=== PATIENT | male | born 1985 ===

== ENCOUNTER 2016-07-24 19:32 | Emergency (ER) | payer OTHER ==
[2016-07-24 19:43] VITALS: BP 121/72; PULSE 70; RESP 16; TEMP 98; O2SAT 97
--- NOTE | 2016-07-24 21:01 | C.PDOC ---
History Of Present Illness 31 year old male presents to the ED with complaints of right forearm pain after boxes fell on his arm at work a few days ago. Patient also notes bilateral shoulder pain but denies trauma to his shoulders. He denies any weakness, numbness, or other complaints at this time. Time Seen by Provider: 07/24/16 20:06 Chief Complaint (Nursing): Upper Extremity Problem/Injury History Per: Patient History/Exam Limitations: no limitations Onset/Duration Of Symptoms: Days Current Symptoms Are (Timing): Still Present Quality: "Pain" Recent travel outside of the [place]: No Past Medical History Reviewed: Historical Data, Nursing Documentation, Vital Signs Vital Signs: Last Vital Signs Temp 98 F 07/24/16 19:38 Pulse 70 07/24/16 19:38 Resp 16 07/24/16 19:38 BP 121/72 07/24/16 19:38 Pulse Ox 97 07/24/16 21:14 - Medical History PMH: Asthma (childhood), Kidney Stones - [facility] Procedures APPLICATION OF SPLINT (09/15/14) DPT ADMINISTRATION (08/21/14) Family History: States: Unknown Family Hx - Social History Hx Tobacco Use: No Hx Alcohol Use: No Hx Substance Use: No - Immunization History Hx Tetanus Toxoid Vaccination: No Hx Influenza Vaccination: No Hx Pneumococcal Vaccination: No Review Of Systems Musculoskeletal: Positive for: Shoulder Pain (bilateral shoulder pain ), Arm Pain (right forearm pain ) Skin: Negative for: Bruising Neurological: Negative for: Weakness, Numbness Physical Exam - Physical Exam Appears: Non-toxic, No Acute Distress Skin: Warm, Dry, No Ecchymosis Head: Atraumatic Eye(s): bilateral: Normal Inspection, PERRL Neck: Normal, Supple Chest: Symmetrical, No Deformity Extremity: Normal ROM (full range of motion in both UE), Tenderness (tenderness to dorsal aspect of the right forearm), Capillary Refill (good capillary refill ), No Deformity, Swelling (swelling to dorsal aspect to the right forearm ), Other (normal sensations ) Pulses: Left Radial: Normal, Right Radial: Normal Neurological/Psych: Oriented x3, Normal Motor, Normal Sensation Gait: Steady ED Course And Treatment O2 Sat by Pulse Oximetry: 97 (room air ) Pulse Ox Interpretation: Normal - Other Rad X-RAY RIGHT FOREARM X-Ray: Interpreted by Me, Viewed By Me Interpretation: No fracture in right forearm. Progress Note: Patient is refusing pain medications and instructed to follow up with PMD. Disposition Counseled Patient/Family Regarding: Diagnosis, Need For Followup, Rx Given - Disposition Referrals: [facility] [Outside] Disposition: HOME/ ROUTINE Disposition Time: 20:59 Condition: STABLE Additional Instructions: Apply Ice to area Take meds as prescribed Return to ER if worse Prescriptions: Ibuprofen [Motrin] 600 mg PO Q6H #20 tab Instructions: Contusion in Adults (ED) Forms: Work Excuse - Clinical Impression Clinical Impression: Forearm contusion, Shoulder pain, bilateral - Scribe Statement The provider has reviewed the documentation as recorded by the Scribe Symone Alvarado All medical record entries made by the Richibe were at my direction and personally dictated by me. I have reviewed the chart and agree that the record accurately reflects my personal performance of the history, physical exam, medical decision making, and the department course for this patient. I have also personally directed, reviewed, and agree with the discharge instructions and disposition.
--- NOTE | 2016-07-25 11:43 | RAD ---
PROCEDURE: Radiographs of the right forearm. HISTORY: distal forearm injury COMPARISON: None available. TECHNIQUE: Frontal and lateral views obtained. FINDINGS: BONES: No acute displaced fracture. JOINT SPACES: No dislocation. OTHER FINDINGS: Soft tissues appear unremarkable. No evidence of radiopaque foreign body. IMPRESSION: No acute displaced fracture, dislocation, or significant joint effusion identified. If symptoms persist, or if there is continued clinical concern, x-ray follow-up in 7-10 days should be considered.
== END 2016-07-24 21:04 | disposition home or self-care (01) ==
LOC: C.ER 19:32
DX: S50.11XA Contusion of right forearm, initial encounter (principal); W20.8XXA Other cause of strike by thrown, projected or falling object, initial encounter; Y93.89 Activity, other specified; Y92.89 Other specified places as the place of occurrence of the external cause; Y99.0 Civilian activity done for income or pay; M25.512 Pain in left shoulder; M25.511 Pain in right shoulder

== ENCOUNTER 2017-01-31 22:35 | Emergency (ER) | payer SELFPAY ==
--- NOTE | 2017-01-31 23:07 | C.PDOC ---
History Of Present Illness 31 year old male presents to the ER with a complaint of abdominal pain that began earlier tonight around 21:00 that has been worsening, associated with one episode of vomiting. Denies fever, chills, diarrhea, SOB, or chest pain. Patient states the pain is over all his abdomen and right flank area. Patient has a Hx of kidney stones, he was seen in June 2013 where he had a CT abd /pel that showed mild to moderate right renal hydroureteronephrosis secondary to a 4 mm calculus in the distal right ureter, 3 mm pulmonary nodule in the right middle lobe. Chief Complaint (Nursing): Male Genitourinary History Per: Patient History/Exam Limitations: no limitations Onset/Duration Of Symptoms: Hrs Current Symptoms Are (Timing): Still Present Severity: Mild Pain Scale Rating Of: 4 Quality Of Discomfort: Unable To Describe Associated Symptoms: Vomiting. denies: Fever, Chills, Diarrhea Alleviating Factors: None Recent travel outside of the [place]: No Additional History Per: Patient Past Medical History Reviewed: Historical Data, Nursing Documentation, Vital Signs Vital Signs: Last Vital Signs Temp 98.5 F 02/01/17 01:34 Pulse 90 02/01/17 01:34 Resp 16 02/01/17 01:34 BP 127/78 02/01/17 01:34 Pulse Ox 97 02/01/17 04:19 - Medical History PMH: Asthma (childhood), Kidney Stones, Chronic Kidney Disease - [facility] Procedures APPLICATION OF SPLINT (09/15/14) DPT ADMINISTRATION (08/21/14) Family History: States: Unknown Family Hx - Social History Hx Tobacco Use: No Hx Alcohol Use: Yes Hx Substance Use: Yes (MARIJUANA) - Immunization History Hx Tetanus Toxoid Vaccination: No Hx Influenza Vaccination: No Hx Pneumococcal Vaccination: No Review Of Systems Constitutional: Negative for: Fever, Chills Eyes: Negative for: Pain ENT: Negative for: Ear Pain Cardiovascular: Negative for: Chest Pain, Palpitations Respiratory: Negative for: Cough, Shortness of Breath, SOB with Excertion, Pleuritic Pain Gastrointestinal: Positive for: Nausea, Vomiting, Abdominal Pain. Negative for : Diarrhea, Constipation Genitourinary: Negative for: Dysuria, Hematuria Musculoskeletal: Negative for: Neck Pain, Shoulder Pain Skin: Negative for: Rash Neurological: Negative for: Weakness Psych: Negative for: Anxiety Physical Exam - Physical Exam Appears: Non-toxic, No Acute Distress Skin: Normal Color, Warm, Dry Head: Atraumatic, Normacephalic Eye(s): bilateral: Normal Inspection Oral Mucosa: Moist Chest: Symmetrical, No Tenderness Cardiovascular: Rhythm Regular Respiratory: Normal Breath Sounds, No Rales, No Rhonchi Gastrointestinal/Abdominal: Bowel Sounds, Soft, Tenderness (Diffuse), No Organomegaly, No Mass, No Distention, No Guarding, No Rebound, No Hernia, No Ascites Back: CVA Tenderness (Right) Neurological/Psych: Oriented x3, Normal Speech ED Course And Treatment - Laboratory Results Result Diagrams: 01/31/17 23:43 01/31/17 23:43 O2 Sat by Pulse Oximetry: 97 (Room air) Pulse Ox Interpretation: Normal - CT Scan/US CT abd/pel Other Rad Studies (CT/US): Read By Radiologist, Radiology Report Reviewed CT/US Interpretation: EXAM: CT Abdomen and Pelvis With Intravenous Contrast. CLINICAL HISTORY: 31 years old, male; Pain; Abdominal pain; Patient HX: 07-11-13 ; Additional info: Abd pain. TECHNIQUE: Axial computed tomography images of the abdomen and pelvis with intravenous contrast. All CT. scans at this facility use one or more dose reduction techniques, viz.: automated exposure control;. ma/kV adjustment per patient size (including targeted exams where dose is matched to indication; i.e. head); or iterative reconstruction technique. Coronal and sagittal reformatted images were created and reviewed. CONTRAST: 100 mL of [id number] administered intravenously. COMPARISON: CT - ABD PELVIS W/O PO OR IV CONT 2013-07-11 23:26. FINDINGS: Lower thorax: Minimal atelectasis. 0.4 cm RIGHT middle lobe nodule, stable. ABDOMEN: Liver: Unremarkable. No mass. Gallbladder and bile ducts: No calcified stones. No ductal dilation. Pancreas: No ductal dilation. No mass. Spleen: No splenomegaly. Adrenals: No mass. Kidneys and ureters: Small calculus within LEFT kidney. No hydronephrosis. Stomach and bowel: Probable underdistention of LEFT colon. No definite mural thickening. No. obstruction. Appendix: Normal caliber. No inflammation. PELVIS: Bladder: Unremarkable. Reproductive: Unremarkable as visualized. ABDOMEN and PELVIS: Intraperitoneal space: No significant fluid collection. No free air. Bones/joints: No acute fracture. Soft tissues: Unremarkable. Vasculature: Unremarkable. No aneurysm. Lymph nodes: No pathologically enlarged lymph nodes. IMPRESSION: 1. No definite acute intraabdominal abnormality. 2. Non-acute findings are described above. Medical Decision Making Medical Decision Making: Plan: * CT abd/pel * CMP * Lipase * CBC * GC/Chlamydia * UA * Toradol Patient had minimal relief from toradol, will administered 1 liter bolus- pt with ketones 1+ in urien/ and morphine 4 mg . Patient reports improvement of pain after morphine. CT a/p negaitve. Labs uremarkable. Pt feels better. Disposition Counseled Patient/Family Regarding: Diagnosis - Disposition Referrals: [facility] at [facility] [place] [Outside] [facility] at [facility] [Outside] [facility] [place] [Outside] Disposition: HOME/ ROUTINE Disposition Time: 03:00 Condition: GOOD Additional Instructions: return to ED if symptoms worsen., Ct neg. labs unremarkable Instructions: Acute Abdominal Pain (ED) Forms: General Discharge Instructions, [facility] (Lao), Work Excuse - Clinical Impression Clinical Impression: Abdominal pain - Scribe Statement The provider has reviewed the documentation as recorded by the Scribsudhakar Mata All medical record entries made by the Scribe were at my direction and personally dictated by me. I have reviewed the chart and agree that the record accurately reflects my personal performance of the history, physical exam, medical decision making, and the department course for this patient. I have also personally directed, reviewed, and agree with the discharge instructions and disposition.
[2017-01-31] MEDS ORDERED: Sodium Chloride 0.9% 1,000 ML IV ONE (23:40)
[2017-01-31] MEDS ORDERED: Morphine 4 MG/ML VIAL ONE (23:45)
[2017-01-31] MEDS ORDERED: Sodium Chloride 0.9% 1,000 ML ONE (23:45)
[2017-01-31 23:46] LABS: BASO % 0.4 % (0.0-2.0); EOS % 0.4 % (0.0-4.0); HEMATOCRIT 44.4 % (35.0-51.0); LYMPH # 2.7 K/uL (1.0-4.3); LYMPH % 27.6 % (20.0-40.0); MEAN CELL VOLUME 82.6 fL (80.0-94.0); MEAN CORPUSCULAR HEMOGLOBIN 27.8 pg (27.0-31.0); MEAN CORPUSCULAR HGB CONC 33.6 g/dL (33.0-37.0); MEAN PLATELET VOLUME 9.4 fL (7.2-11.7); MONO # 0.8 K/uL (0.0-0.8); MONO % 8.1 % (0.0-10.0); RED CELL DISTRIBUTION WIDTH 14.3 % (11.5-14.5); WHITE BLOOD COUNT 9.8 K/uL (4.8-10.8)
[2017-01-31 23:58] LABS: ALKALINE PHOSPHATASE 50 U/L (38-126); ALT/SGPT 34 U/L (21-72); AST/SGOT 25 U/L (17-59); BILIRUBIN,TOTAL 0.6 mg/dL (0.2-1.3); BLOOD UREA NITROGEN 16 mg/dL (9-20); CALCIUM 9.4 mg/dl (8.6-10.4); CARBON DIOXIDE 25 mmol/L (22-30); CHLORIDE 100 mmol/L (98-107); GFR AFRICAN-AMERICAN > 60; GLUCOSE,RANDOM 85 mg/dL (75-110); POTASSIUM 4.2 mmol/L (3.6-5.2); SODIUM 138 mmol/L (132-148)
[2017-02-01] MEDS ORDERED: Iodixanol 320 MG/ML 100 ML BOTTLE IV ONE (00:08)
--- NOTE | 2017-02-01 01:23 | CT ---
EXAM: CT Abdomen and Pelvis With Intravenous Contrast CLINICAL HISTORY: 31 years old, male; Pain; Abdominal pain; Patient HX: 07-11-13; Additional info: Abd pain TECHNIQUE: Axial computed tomography images of the abdomen and pelvis with intravenous contrast. All CT scans at this facility use one or more dose reduction techniques, viz.: automated exposure control; ma/kV adjustment per patient size (including targeted exams where dose is matched to indication; i.e. head); or iterative reconstruction technique. Coronal and sagittal reformatted images were created and reviewed. CONTRAST: 100 mL of [id number] administered intravenously. COMPARISON: CT - ABD PELVIS W/O PO OR IV CONT 2013-07-11 23:26 FINDINGS: Lower thorax: Minimal atelectasis. 0.4 cm RIGHT middle lobe nodule, stable. ABDOMEN: Liver: Unremarkable. No mass. Gallbladder and bile ducts: No calcified stones. No ductal dilation. Pancreas: No ductal dilation. No mass. Spleen: No splenomegaly. Adrenals: No mass. Kidneys and ureters: Small calculus within LEFT kidney. No hydronephrosis. Stomach and bowel: Probable underdistention of LEFT colon. No definite mural thickening. No obstruction. Appendix: Normal caliber. No inflammation. PELVIS: Bladder: Unremarkable. Reproductive: Unremarkable as visualized. ABDOMEN and PELVIS: Intraperitoneal space: No significant fluid collection. No free air. Bones/joints: No acute fracture. Soft tissues: Unremarkable. Vasculature: Unremarkable. No aneurysm. Lymph nodes: No pathologically enlarged lymph nodes. IMPRESSION: 1. No definite acute intraabdominal abnormality. 2.Non-acute findings are described above.
[2017-02-01 01:31] LABS: RBC URINE 1 /hpf (0-3); URINE BILIRUBIN NEGATIVE (NEGATIVE); URINE BLOOD NEGATIVE (NEGATIVE); URINE COLOR Yellow (YELLOW); URINE GLUCOSE (UA) NORMAL (Normal); URINE KETONE 1+ mg/dL (NEGATIVE); URINE LEUKOCYTE ESTERASE NEG Leu/uL (Negative); URINE PROTEIN NEGATIVE (NEGATIVE); URINE UROBILINOGEN NORMAL mg/dL (0.2-1.0); WBC URINE < 1 /hpf (0-5)
[2017-02-01 01:35] VITALS: BP 127/78; PULSE 90; RESP 16; TEMP 98.5
[2017-02-01 04:17] VITALS: O2SAT 97
== END 2017-02-01 02:33 | disposition home or self-care (01) ==
LOC: C.ER 22:35
DX: R10.9 Unspecified abdominal pain (principal)
CPT/HCPCS: 74177; 80053; 81001; 83690; 85025; 87491; 87591; 96361; 96374; 96375; 99285; J1885; J2270; J7040; Q9967

== ENCOUNTER 2017-02-06 10:17 | Emergency (ER) | payer SELFPAY ==
[2017-02-06 10:23] VITALS: BP 131/83; PULSE 68; RESP 18; TEMP 97.5; O2SAT 97
--- NOTE | 2017-02-06 10:34 | C.PDOC ---
History Of Present Illness 31 y/o male presents to ED with right hand pain after accidentally slamming hand in door just prior to arrival. Pt is right hand dominant. no analgesics taken at home. denies numbness and tingling. Time Seen by Provider: 02/06/17 10:29 Chief Complaint (Nursing): Upper Extremity Problem/Injury History Per: Patient History/Exam Limitations: no limitations Onset/Duration Of Symptoms: Hrs (1) Current Symptoms Are (Timing): Still Present Quality: Tightness Severity: Moderate Exacerbating Factor(s): Movement Past Medical History Reviewed: Historical Data, Nursing Documentation, Vital Signs Vital Signs: Last Vital Signs Temp 97.5 F L 02/06/17 10:22 Pulse 68 02/06/17 10:22 Resp 18 02/06/17 10:22 BP 131/83 02/06/17 10:22 Pulse Ox 97 02/06/17 15:57 - Medical History PMH: Asthma (childhood), Kidney Stones, Chronic Kidney Disease - [facility] Procedures APPLICATION OF SPLINT (09/15/14) DPT ADMINISTRATION (08/21/14) Family History: States: Unknown Family Hx - Social History Hx Tobacco Use: No Hx Alcohol Use: Yes Hx Substance Use: Yes (MARIJUANA) - Immunization History Hx Tetanus Toxoid Vaccination: No Hx Influenza Vaccination: No Hx Pneumococcal Vaccination: No Review Of Systems Musculoskeletal: Positive for: Hand Pain (right) Skin: Positive for: Bruising (dorsum hand right) Neurological: Negative for: Weakness, Numbness Physical Exam - Physical Exam Appears: Non-toxic, No Acute Distress Skin: Normal Color, Warm, Dry, Ecchymosis (mild to dorsum right hand) Extremity: Normal ROM (at right wrist, unable to fully make fist right hand), Tenderness (to metacarpals, proximal 4th metacarpal swelling/deformity noted. ) , Capillary Refill (less than 2 seconds), Swelling Extremity: Right: Bony Point Tenderness (metacarpals) Pulses: Right Radial: Normal Neurological/Psych: Oriented x3, Normal Speech, Normal Cognition ED Course And Treatment O2 Sat by Pulse Oximetry: 97 - Other Rad Right Hand XR X-Ray: Viewed By Me, Read By Radiologist Interpretation: FINDINGS: BONES: There is no acute displaced fracture or bone destruction. Bone alignment is normal. The 4th and 5th metacarpals are short with old deformities. JOINTS: Normal. No osteoarthritic changes. SOFT TISSUES : Normal. OTHER FINDINGS: None. IMPRESSION: No acute displaced fracture or dislocation. Medical Decision Making Medical Decision Making: right hand pain s/p accidentally slammed in door Plan: cold pack (pt declines), tylenol, xray, re-eval. No acute fx seen on xray, old deformities noted. pt declines cold compress, splint and froylan wrap, pt advised to f/u with orthopedics. Disposition Counseled Patient/Family Regarding: Studies Performed, Diagnosis, Need For Followup - Disposition Referrals: Allen Odonnell MD [Staff Provider] - Disposition: HOME/ ROUTINE Disposition Time: 11:45 Condition: STABLE Additional Instructions: Cold compresses to right hand several times a day. Ibuprofen for pain, follow up with orthopedics. Forms: [facility] (Turkmen), General Discharge Instructions - Clinical Impression Clinical Impression: Injury, hand
--- NOTE | 2017-02-06 11:09 | RAD ---
PROCEDURE: Right Hand Radiographs. HISTORY: slammed in door, 4th metacarpal deformity noted COMPARISON: None. FINDINGS: BONES: There is no acute displaced fracture or bone destruction. Bone alignment is normal. The 4th and 5th metacarpals are short with old deformities. JOINTS: Normal. No osteoarthritic changes. SOFT TISSUES: Normal. OTHER FINDINGS: None. IMPRESSION: No acute displaced fracture or dislocation.
== END 2017-02-06 11:49 | disposition home or self-care (01) ==
LOC: C.ER 10:17
DX: S69.91XA Unspecified injury of right wrist, hand and finger(s), initial encounter (principal); W22.8XXA Striking against or struck by other objects, initial encounter; Y92.89 Other specified places as the place of occurrence of the external cause

== ENCOUNTER 2017-05-16 16:10 | Emergency (ER) | payer OTHER ==
[2017-05-16 16:18] VITALS: BP 133/78; PULSE 91; RESP 18; TEMP 97.6; O2SAT 96
--- NOTE | 2017-05-16 17:04 | C.PDOC ---
History Of Present Illness 32yo male, right hand dominant, history of right hand fracture, presents to ED for evaluation of right hand pain after a box fell on his hand while at work yesterday. He reports normal sensations and denies any weakness or numbness. Pt requests work note. Time Seen by Provider: 05/16/17 16:56 Chief Complaint (Nursing): Finger,Hand,&Wrist History Per: Patient History/Exam Limitations: no limitations Onset/Duration Of Symptoms: Days Current Symptoms Are (Timing): Still Present Quality: "Pain" Past Medical History Reviewed: Historical Data, Nursing Documentation, Vital Signs Vital Signs: Last Vital Signs Temp 97.6 F 05/16/17 16:16 Pulse 91 H 05/16/17 16:16 Resp 18 05/16/17 16:16 BP 133/78 05/16/17 16:16 Pulse Ox 96 05/16/17 17:34 - Medical History PMH: Asthma (childhood), Kidney Stones, Chronic Kidney Disease Surgical History: No Surg Hx - [facility] Procedures APPLICATION OF SPLINT (09/15/14) DPT ADMINISTRATION (08/21/14) Family History: States: Unknown Family Hx - Social History Hx Tobacco Use: No Hx Alcohol Use: Yes Hx Substance Use: Yes (MARIJUANA) - Immunization History Hx Tetanus Toxoid Vaccination: No Hx Influenza Vaccination: No Hx Pneumococcal Vaccination: No Review Of Systems Except As Marked, All Systems Reviewed And Found Negative. Musculoskeletal: Positive for: Hand Pain (right hand pain) Neurological: Negative for: Weakness, Numbness Physical Exam - Physical Exam Appears: Non-toxic, No Acute Distress Skin: Warm, Dry Head: Atraumatic, Normacephalic Eye(s): bilateral: PERRL, EOMI Nose: Normal Oral Mucosa: Moist Neck: Normal ROM, Supple Chest: Symmetrical Respiratory: No Accessory Muscle Use Extremity: Normal ROM, Tenderness (no tenderness noted to right hand), Capillary Refill (< 2 sec), Deformity (chronic deformity to right 5th metacarpal ), Swelling (no swelling noted to right hand) Pulses: Left Radial: Normal, Right Radial: Normal Neurological/Psych: Oriented x3, Normal Motor, Normal Sensation ED Course And Treatment O2 Sat by Pulse Oximetry: 96 (RA) Pulse Ox Interpretation: Normal Progress Note: Patient was offered XR of right hand which he declined. He also declined medication for pain. pt requests work note. Patient given instructions for follow up with an orthopedis in 1-2 days Disposition - Disposition Referrals: [facility] at [facility] [Outside] Adam Garrido III, MD [Staff Provider] - Disposition: HOME/ ROUTINE Disposition Time: 17:02 Condition: STABLE Additional Instructions: Rest, ice and elevate the area. Follow up with the clinic in 2-5 days for further evaluation. Take medications as prescribed. Return to the emergency department at any time if symptoms persist or worsen. [facility] for [facility] assistance [phone]. Instructions: Contusion (DC) Forms: [employer] Connect (Bulgarian), Work Excuse - Clinical Impression Clinical Impression: Hand contusion - PA / CAR CARDER / Resident Statement MD/DO has reviewed & agrees with the documentation as recorded. - Scribe Statement The provider has reviewed the documentation as recorded by the Scribe (Alina Salas) Provider Attestation: All medical record entries made by the Scribe were at my direction and personally dictated by me. I have reviewed the chart and agree that the record accurately reflects my personal performance of the history, physical exam, medical decision making, and the department course for this patient. I have also personally directed, reviewed, and agree with the discharge instructions and disposition.
== END 2017-05-16 17:10 | disposition home or self-care (01) ==
LOC: C.ER 16:10
DX: S60.221A Contusion of right hand, initial encounter (principal); W22.8XXA Striking against or struck by other objects, initial encounter; Y92.89 Other specified places as the place of occurrence of the external cause; Y99.0 Civilian activity done for income or pay

== ENCOUNTER 2017-06-21 05:12 | Emergency (ER) | payer OTHER ==
[2017-06-21 05:21] VITALS: BP 140/84; PULSE 96; RESP 18; TEMP 97.8; O2SAT 96
[2017-06-21] MEDS ORDERED: Sodium Chloride 0.9% 1,000 ML IV ONE (05:36)
--- NOTE | 2017-06-21 05:49 | C.PDOC ---
History Of Present Illness <Renan Raymond - Last Filed: 06/21/17 07:09> <Natalie Dominguez - Last Filed: 06/21/17 08:36> 32 year old male presents to the emergency department with complaints of right sided abdominal pain, qualified as severe. Patient states that his pain is radiating to his groin area, and he reports a history of having this pain in the past. (SegundoRenan Tyson) History/Exam Limitations: no limitations Onset/Duration Of Symptoms: Hrs Current Symptoms Are (Timing): Still Present Quality Of Discomfort: "Pain" <Renan Raymond - Last Filed: 06/21/17 07:09> <Natalie Dominguez - Last Filed: 06/21/17 08:36> Time Seen by Provider: 06/21/17 05:34 Chief Complaint (Nursing): Male Genitourinary Past Medical History Reviewed: Historical Data, Nursing Documentation, Vital Signs - Medical History PMH: Asthma (childhood), Kidney Stones, Chronic Kidney Disease Surgical History: No Surg Hx Family History: States: Unknown Family Hx - Social History Hx Tobacco Use: No Hx Alcohol Use: Yes Hx Substance Use: Yes (MARIJUANA) - Immunization History Hx Tetanus Toxoid Vaccination: No Hx Influenza Vaccination: No Hx Pneumococcal Vaccination: No <Renan Raymond - Last Filed: 06/21/17 07:09> Vital Signs: Last Vital Signs Temp 97.8 F 06/21/17 05:18 Pulse 96 H 06/21/17 05:18 Resp 18 06/21/17 05:18 BP 140/84 06/21/17 05:18 Pulse Ox 96 06/21/17 07:10 - [facility] Procedures APPLICATION OF SPLINT (09/15/14) DPT ADMINISTRATION (08/21/14) Review Of Systems Except As Marked, All Systems Reviewed And Found Negative. Gastrointestinal: Positive for: Abdominal Pain Genitourinary: Positive for: Other (groin pain) <Renan Raymond - Last Filed: 06/21/17 07:09> Physical Exam - Physical Exam Appears: Non-toxic, In Acute Distress Cardiovascular: Rhythm Regular Respiratory: Normal Breath Sounds Gastrointestinal/Abdominal: Soft, Tenderness (RUQ, right lumbar), No Guarding, No Rebound <Renan Raymond - Last Filed: 06/21/17 07:09> ED Course And Treatment - Laboratory Results Result Diagrams: 06/21/17 05:57 06/21/17 05:57 O2 Sat by Pulse Oximetry: 96 (RA) Pulse Ox Interpretation: Normal <Cheko Raymondeliana Tyson - Last Filed: 06/21/17 07:09> - Laboratory Results Result Diagrams: 06/21/17 05:57 06/21/17 05:57 <Natalie Dominguez - Last Filed: 06/21/17 08:36> Progress <SegundoRenan Tyson - Last Filed: 06/21/17 07:09> <AlbertoNatalie - Last Filed: 06/21/17 08:36> - Re-Evaluation Re-evaluation Note: 06/21/17 08:36 INFORMED BY RN PT ELOPED PRIOR TO GIVING UA, PRIOR TO MY REEVAL. WITNESSED BY RN TO WALK OUT WO DIFFICULTY (Natalie Dominguez) Medical Decision Making <Renan Raymond - Last Filed: 06/21/17 07:09> <AlbertoNatalie - Last Filed: 06/21/17 08:36> Medical Decision Making: Plan: CMP Lipase CBC Flomax 0.4mg PO NaCl IV Fluids Toradol 30mg IVP Urinalysis (Renan Raymond) Disposition - Disposition Disposition Time: 07:00 <Renan Raymond - Last Filed: 06/21/17 07:09> - Disposition Disposition Time: 08:30 <AlbertoNatalie - Last Filed: 06/21/17 08:36> - Disposition Referrals: Non [facility] Provider, [Primary Care Provider] - Disposition: ELOPEMENT - ER ONLY Condition: GOOD Forms: [facility] (Faroese) - Clinical Impression Clinical Impression: Flank pain - Scribe Statement The provider has reviewed the documentation as recorded by the Scribe (Pepe Nellie) <Renan Raymond - Last Filed: 06/21/17 07:09> <Natalie Dominguez - Last Filed: 06/21/17 08:36> - Scribe Statement Provider Attestation: All medical record entries made by the Scribe were at my direction and personally dictated by me. I have reviewed the chart and agree that the record accurately reflects my personal performance of the history, physical exam, medical decision making, and the department course for this patient. I have also personally directed, reviewed, and agree with the discharge instructions and disposition. (Renan Raymond)
[2017-06-21 06:00] LABS: BASO # 0.1 K/uL (0.0-0.2); BASO % 0.6 % (0.0-2.0); EOS # 0.1 K/uL (0.0-0.7); HEMOGLOBIN 15.3 g/dL (12.0-18.0); LYMPH # 3.7 K/uL (1.0-4.3); LYMPH % 36.8 % (20.0-40.0); MEAN CELL VOLUME 82.2 fL (80.0-94.0); MEAN CORPUSCULAR HEMOGLOBIN 27.9 pg (27.0-31.0); MEAN PLATELET VOLUME 9.7 fL (7.2-11.7); MONO # 0.9 K/uL (0.0-0.8); NEUT # 5.3 K/uL (1.8-7.0); NEUT % 52.6 % (50.0-75.0); NRBC % 0.1 % (0.0-2.0); RBC 5.48 Mil/uL (4.40-5.90); RED CELL DISTRIBUTION WIDTH 14.2 % (11.5-14.5); WHITE BLOOD COUNT 10.1 K/uL (4.8-10.8)
[2017-06-21 06:11] LABS: ALB/GLOB RATIO 1.2 (1.0-2.1); ALBUMIN 4.3 g/dL (3.5-5.0); ALT/SGPT 21 U/L (21-72); AST/SGOT 21 U/L (17-59); BLOOD UREA NITROGEN 16 mg/dL (9-20); CALCIUM 9.3 mg/dl (8.6-10.4); GFR AFRICAN-AMERICAN > 60; GFR NON-AFRICAN AMERICAN > 60; LIPASE 106 U/L (23-300)
--- NOTE | 2017-06-21 07:06 | CT ---
EXAM: CT Abdomen and Pelvis Without Intravenous Contrast CLINICAL HISTORY: 32 years old, male; Pain; Abdominal pain; Patient HX: 01-31-17. Images sent; Additional info: Right sided abd pain TECHNIQUE: Axial computed tomography images of the abdomen and pelvis without intravenous contrast. All CT scans at this facility use one or more dose reduction techniques, viz.: automated exposure control; ma/kV adjustment per patient size (including targeted exams where dose is matched to indication; i.e. head); or iterative reconstruction technique. Coronal and sagittal reformatted images were created and reviewed. COMPARISON: CT - ABD PELVIS IV CONTRAST ONLY 2017-02-01 00:44 FINDINGS: Limitations: Lack of intravenous contrast. Lung bases: No acute findings. ABDOMEN: Liver: Unremarkable. Gallbladder and bile ducts: No calcified stones. No ductal dilation. Pancreas: Unremarkable. No ductal dilation. Spleen: No splenomegaly. Adrenals: No mass. Kidneys and ureters: Few small renal calculi. No hydronephrosis. Stomach and bowel: No definite mural thickening. No obstruction. PELVIS: Appendix: Normal caliber. No inflammation. Bladder: Unremarkable. No stones. Reproductive: Unremarkable as visualized. ABDOMEN and PELVIS: Intraperitoneal space: No significant fluid collection. No free air. Bones/joints: No acute fracture. Soft tissues: Unremarkable. Vasculature: Unremarkable. No aneurysm. Lymph nodes: No pathologically enlarged lymph nodes. IMPRESSION: 1. Nonobstructing renal calculi.
== END 2017-06-21 08:44 | disposition left against medical advice (07) ==
LOC: SUPCPDRO 05:12 → C.ER 05:12
DX: R10.11 Right upper quadrant pain (principal)
CPT/HCPCS: 74176; 80053; 83690; 85025; 96361; 96374; 96376; 99283; J1885; J7040

== ENCOUNTER 2017-07-09 02:10 | Emergency (ER) | payer OTHER ==
[2017-07-09] MEDS ORDERED: Sodium Chloride 0.9% 1,000 ML IV ONE (02:18)
[2017-07-09] MEDS ORDERED: Morphine 4 MG/ML VIAL IV STA (02:20)
--- NOTE | 2017-07-09 02:25 | C.PDOC ---
History Of Present Illness 32 y/o male presents to the ED complaining of severe left flank pain waking him up at 1am. Reports prior history of kidney stones, and states pain is reminiscent of those episodes. On arrival patient is restless, in moderate acute painful distress, screaming for help. He denies any fevers, chills, vomiting, diarrhea, hematuria, abdominal pain, dysuria, frequency, or incontinence. Time Seen by Provider: 07/09/17 02:24 Chief Complaint (Nursing): Male Genitourinary History Per: Patient History/Exam Limitations: no limitations Onset/Duration Of Symptoms: Hrs Current Symptoms Are (Timing): Still Present Past Medical History Reviewed: Historical Data, Nursing Documentation, Vital Signs Vital Signs: Last Vital Signs Temp 97.8 F 07/09/17 05:24 Pulse 60 07/09/17 05:24 Resp 16 07/09/17 05:24 BP 115/62 07/09/17 05:24 Pulse Ox 95 07/09/17 05:24 - Medical History PMH: Asthma (childhood), Kidney Stones, Chronic Kidney Disease - [facility] Procedures APPLICATION OF SPLINT (09/15/14) DPT ADMINISTRATION (08/21/14) Family History: States: Unknown Family Hx - Social History Hx Tobacco Use: Yes (light) Hx Alcohol Use: Yes Hx Substance Use: Yes (MARIJUANA) - Immunization History Hx Tetanus Toxoid Vaccination: No Hx Influenza Vaccination: No Hx Pneumococcal Vaccination: No Review Of Systems Except As Marked, All Systems Reviewed And Found Negative. Constitutional: Negative for: Fever, Chills Gastrointestinal: Negative for: Vomiting, Abdominal Pain Genitourinary: Negative for: Dysuria, Frequency, Incontinence, Hematuria Musculoskeletal: Positive for: Other (Left flank pain) Physical Exam - Physical Exam Appears: In Acute Distress (mild painful distress) Skin: Normal Color, Warm, Dry Head: Atraumatic, Normacephalic Eye(s): bilateral: Normal Inspection, PERRL, EOMI Oral Mucosa: Moist Neck: Normal ROM, Supple Chest: Symmetrical Cardiovascular: Rhythm Regular, No Murmur Respiratory: Normal Breath Sounds, No Rales, No Rhonchi, No Wheezing Gastrointestinal/Abdominal: Soft, No Tenderness, No Distention Back: Normal Inspection, No CVA Tenderness, No Vertebral Tenderness Extremity: Bilateral: Atraumatic, Normal Color And Temperature, Normal ROM Pulses: Left Dorsalis Pedis: Normal, Right Dorsalis Pedis: Normal Neurological/Psych: Oriented x3, Normal Speech Gait: Steady ED Course And Treatment - Laboratory Results Result Diagrams: 07/09/17 02:34 07/09/17 02:34 O2 Sat by Pulse Oximetry: 100 (RA) Pulse Ox Interpretation: Normal - CT Scan/US CT A/P Other Rad Studies (CT/US): Read By Radiologist, Radiology Report Reviewed CT/US Interpretation: Name: JERRY COLEMAN Age: 32Years M Date: 07/09/2017. SSN: [id number] : 1985. Study: CT ABDOMEN/PELVIS WO Requesting Physician: Kyleigh Herrmann PA-C. Images: 686. Addl Studies: Provided Clinical History: flank pain. CONFIDENTIALITY STATEMENT. This transmission is confidential and is intended to be a privileged communication. It is intended only for the use of the addressee. Access to this. message by anyone else is unauthorized. If you are not the intended recipient, any disclosure, copying, distribution or any action taken, or omitted to. be taken in reliance on it is prohibited and may be unlawful. If you received this communication in error, please notify us by telephone, so that return. of this document to us can be arranged. Page 1 of 3. EXAM: CT Abdomen and Pelvis Without Intravenous Contrast. EXAM DATE/TIME: 07/09/2017 2: 27 AM. CLINICAL HISTORY: 32 years old, male; Pain; Abdominal pain; Flank; Left ; Additional info: Flank pain. TECHNIQUE: Axial computed tomography images of the abdomen and pelvis without intravenous contrast. All CT. scans at this facility use one or more dose reduction techniques, viz.: automated exposure control;. ma/kV adjustment per patient size (including targeted exams where dose is matched to indication; i.e. head); or iterative reconstruction technique. Coronal and sagittal reformatted images were created and reviewed. COMPARISON: Prior CT abdomen and pelvis of 2017-06-21. FINDINGS: LIMITATIONS : Mild streak/motion artifact. LUNG BASES: No significant abnormality seen. ABDOMEN: LIVER: No acute abnormality of the liver identified. GALLBLADDER AND BILE DUCTS: No CT evidence of acute cholecystitis. No evidence of. significant biliary ductal dilatation. PANCREAS: No CT evidence of acute pancreatitis. SPLEEN: No acute abnormality of the spleen identified. ADRENALS: No acute abnormality of the adrenal glands identified. KIDNEYS AND URETERS: 4 mm obstructing stone in the left mid ureter, image 60/series 601,. causing mild left hydroureteronephrosis. Tiny, nonobstructing right renal stones. STOMACH AND BOWEL: No acute abnormality of the stomach, small bowel or colon identified. No. evidence of bowel obstruction. PELVIS: APPENDIX: Appendix is seen, and is within normal limits in appearance. BLADDER: Mild thickening of the bladder wall. REPRODUCTIVE: No acute abnormality of the reproductive organs is seen. ABDOMEN and PELVIS: INTRAPERITONEAL SPACE: No evidence of free intraperitoneal air or fluid. BONES/JOINTS: No acute fractures or other acute bony abnormality noted. SOFT TISSUES: No acute abnormality of the visualized soft tissues is seen. VASCULATURE: No evidence of abdominal aortic aneurysm. No evidence of periaortic. hemorrhage. LYMPH NODES: No evidence of diffuse lymphadenopathy. IMPRESSION: - 4 mm obstructing stone in the left mid ureter, causing mild left hydroureteronephrosis. - Mild bladder wall thickening. This is a nonspecific finding, but can be seen with cystitis. Recommend. clinical correlation. - See above for remaining findings. Thank you for allowing us to participate in the care of your patient. Dictated and Authenticated by: Sheridan Syed MD. 07/09/2017 4:33 AM Eastern Time ([place] & [place]) Progress Note: Prior to weight being entered in chart, ordered Morphine and Zofran. Chart review done, patient was last seen here on 06/21 with similar presentation and had CT scan with no obstructing stone. Ordered labs and repeat CT scan. Patient informed of CT findings. Administered Flomax and Lidocaine with 2nd bolus of IV fluids. Disposition - Disposition Referrals: Jose M Flores Jr., MD [Staff Provider] - Disposition: HOME/ ROUTINE Disposition Time: 06:33 Condition: IMPROVED Additional Instructions: Follow up with Urologist within 2-3 days. Return to ED if feel worse. Prescriptions: Tamsulosin HCl [Flomax] 0.4 mg PO QPM #10 cap.er.24h oxyCODONE/Acetaminophen [Percocet 5/325 mg Tab] 1 tab PO QID PRN #20 tab PRN Reason: Pain Instructions: Renal Colic (DC) Forms: [facility] (Turkmen), Work Excuse - Clinical Impression Clinical Impression: Renal colic on left side - PA / [employer]OM SH[employer] DES[employer]ER [employer]KER / Resident Statement MD/DO has reviewed & agrees with the documentation as recorded. - Scribe Statement The provider has reviewed the documentation as recorded by the Scribe (Elo Quispe) All medical record entries made by the Scribe were at my direction and personally dictated by me. I have reviewed the chart and agree that the record accurately reflects my personal performance of the history, physical exam, medical decision making, and the department course for this patient. I have also personally directed, reviewed, and agree with the discharge instructions and disposition.
[2017-07-09 02:45] LABS: BASO # 0.1 K/uL (0.0-0.2); BASO % 0.5 % (0.0-2.0); EOS # 0.2 K/uL (0.0-0.7); HEMOGLOBIN 13.7 g/dL (12.0-18.0); LYMPH % 31.3 % (20.0-40.0); MEAN CELL VOLUME 83.4 fL (80.0-94.0); MEAN CORPUSCULAR HEMOGLOBIN 27.5 pg (27.0-31.0); MEAN PLATELET VOLUME 9.3 fL (7.2-11.7); MONO # 1.2 K/uL (0.0-0.8); MONO % 12.4 % (0.0-10.0); NEUT # 5.1 K/uL (1.8-7.0); NEUT % 53.8 % (50.0-75.0); RBC 4.96 Mil/uL (4.40-5.90); WHITE BLOOD COUNT 9.5 K/uL (4.8-10.8)
[2017-07-09 03:30] LABS: ALB/GLOB RATIO 1.1 (1.0-2.1); ALT/SGPT 29 U/L (21-72); AST/SGOT 20 U/L (17-59); BLOOD UREA NITROGEN 17 mg/dL (9-20); CALCIUM 9.1 mg/dl (8.6-10.4); GFR AFRICAN-AMERICAN > 60; GFR NON-AFRICAN AMERICAN > 60; LIPASE 102 U/L (23-300)
[2017-07-09 03:36] LABS: URINE BILIRUBIN NEGATIVE (NEGATIVE); URINE BLOOD 3+ (NEGATIVE); URINE CLARITY Clear (Clear); URINE COLOR Yellow (YELLOW); URINE GLUCOSE (UA) NORMAL (Normal); URINE LEUKOCYTE ESTERASE NEG Leu/uL (Negative); URINE PROTEIN NEGATIVE (NEGATIVE); URINE UROBILINOGEN NORMAL mg/dL (0.2-1.0)
--- NOTE | 2017-07-09 04:34 | CT ---
EXAM: CT Abdomen and Pelvis Without Intravenous Contrast EXAM DATE/TIME: 07/09/2017 2:27 AM CLINICAL HISTORY: 32 years old, male; Pain; Abdominal pain; Flank; Left; Additional info: Flank pain TECHNIQUE: Axial computed tomography images of the abdomen and pelvis without intravenous contrast. All CT scans at this facility use one or more dose reduction techniques, viz.: automated exposure control; ma/kV adjustment per patient size (including targeted exams where dose is matched to indication; i.e. head); or iterative reconstruction technique. Coronal and sagittal reformatted images were created and reviewed. COMPARISON: Prior CT abdomen and pelvis of 2017-06-21 FINDINGS: LIMITATIONS: Mild streak/motion artifact. LUNG BASES: No significant abnormality seen. ABDOMEN: LIVER: No acute abnormality of the liver identified. GALLBLADDER AND BILE DUCTS: No CT evidence of acute cholecystitis. No evidence of significant biliary ductal dilatation. PANCREAS: No CT evidence of acute pancreatitis. SPLEEN: No acute abnormality of the spleen identified. ADRENALS: No acute abnormality of the adrenal glands identified. KIDNEYS AND URETERS: 4 mm obstructing stone in the left mid ureter, image 60/series 601, causing mild left hydroureteronephrosis. Tiny, nonobstructing right renal stones. STOMACH AND BOWEL: No acute abnormality of the stomach, small bowel or colon identified. No evidence of bowel obstruction. PELVIS: APPENDIX: Appendix is seen, and is within normal limits in appearance. BLADDER: Mild thickening of the bladder wall. REPRODUCTIVE: No acute abnormality of the reproductive organs is seen. ABDOMEN and PELVIS: INTRAPERITONEAL SPACE: No evidence of free intraperitoneal air or fluid. BONES/JOINTS: No acute fractures or other acute bony abnormality noted. SOFT TISSUES: No acute abnormality of the visualized soft tissues is seen. VASCULATURE: No evidence of abdominal aortic aneurysm. No evidence of periaortic hemorrhage. LYMPH NODES: No evidence of diffuse lymphadenopathy. IMPRESSION: - 4 mm obstructing stone in the left mid ureter, causing mild left hydroureteronephrosis. - Mild bladder wall thickening. This is a nonspecific finding, but can be seen with cystitis. Recommend clinical correlation. - See above for remaining findings.
[2017-07-09] MEDS ORDERED: Sodium Chloride 0.9% 1,000 ML IV STA (04:40)
[2017-07-09] MEDS ORDERED: Lidocaine 136 MG in Sodium Chloride 0.9% 100 ML IV STA (04:40)
[2017-07-09 05:25] VITALS: BP 115/62; PULSE 60; RESP 16; TEMP 97.8
[2017-07-09 06:35] VITALS: O2SAT 100
== END 2017-07-09 06:45 | disposition home or self-care (01) ==
LOC: C.ER 02:10
DX: N23 Unspecified renal colic (principal); N18.9 Chronic kidney disease, unspecified; Z87.442 Personal history of urinary calculi
CPT/HCPCS: 74176; 80053; 81001; 83690; 85025; 96361; 96374; 96375; 99284; J2001; J2270; J2405; J7040

== ENCOUNTER 2017-08-07 09:54 | Emergency (ER) | payer OTHER ==
[2017-08-07 10:20] VITALS: RESP 18
[2017-08-07] MEDS ORDERED: Sodium Chloride 0.9% 1,000 ML IV ONE (10:32)
[2017-08-07 10:44] LABS: BASO # 0.1 K/uL (0.0-0.2); EOS # 0.1 K/uL (0.0-0.7); EOS % 1.1 % (0.0-4.0); HEMOGLOBIN 14.4 g/dL (12.0-18.0); LYMPH # 1.6 K/uL (1.0-4.3); LYMPH % 27.1 % (20.0-40.0); MEAN CELL VOLUME 82.9 fL (80.0-94.0); MEAN CORPUSCULAR HEMOGLOBIN 27.5 pg (27.0-31.0); MEAN CORPUSCULAR HGB CONC 33.2 g/dL (33.0-37.0); MEAN PLATELET VOLUME 9.2 fL (7.2-11.7); NEUT # 3.3 K/uL (1.8-7.0); NEUT % 54.8 % (50.0-75.0); NRBC % 0.1 % (0.0-2.0); RBC 5.25 Mil/uL (4.40-5.90); RED CELL DISTRIBUTION WIDTH 14.4 % (11.5-14.5); WHITE BLOOD COUNT 6.1 K/uL (4.8-10.8)
[2017-08-07 10:50] LABS: URINE BILIRUBIN NEGATIVE (NEGATIVE); URINE BLOOD 2+ (NEGATIVE); URINE CLARITY Clear (Clear); URINE COLOR Yellow (YELLOW); URINE GLUCOSE (UA) NORMAL (Normal); URINE LEUKOCYTE ESTERASE NEG Leu/uL (Negative); URINE PROTEIN 1+ mg/dL (NEGATIVE); URINE UROBILINOGEN NORMAL mg/dL (0.2-1.0)
[2017-08-07 10:56] LABS: ALB/GLOB RATIO 1.2 (1.0-2.1); ALBUMIN 4.4 g/dL (3.5-5.0); ALT/SGPT 30 U/L (21-72); AST/SGOT 28 U/L (17-59); BLOOD UREA NITROGEN 14 mg/dL (9-20); CALCIUM 9.5 mg/dl (8.6-10.4); GFR AFRICAN-AMERICAN > 60; GFR NON-AFRICAN AMERICAN > 60; LIPASE 88 U/L (23-300)
--- NOTE | 2017-08-07 11:06 | C.PDOC ---
History Of Present Illness 32 year old male, whose PMHx includes left kidney stones, presents to the ED for evaluation of left flank pain that radiates to left groin which developed this morning. Patient reports experiencing similar symptoms in the past. Patient also reports nausea and one episode of vomiting. Patient denies fever, chills, abdominal pain, dysuria, urinary frequency, hematuria, or recent illness. Time Seen by Provider: 08/07/17 10:06 Chief Complaint (Nursing): Male Genitourinary History Per: Patient History/Exam Limitations: no limitations Onset/Duration Of Symptoms: Hrs Current Symptoms Are (Timing): Still Present Quality Of Discomfort: "Pain" Associated Symptoms: Nausea, Vomiting. denies: Fever, Chills, Urinary Symptoms Additional History Per: Patient Past Medical History Reviewed: Historical Data, Nursing Documentation, Vital Signs Vital Signs: Last Vital Signs Temp 98 F 08/07/17 12:21 Pulse 67 08/07/17 12:21 Resp 18 08/07/17 12:21 BP 123/72 08/07/17 12:21 Pulse Ox 100 08/07/17 12:21 - Medical History PMH: Asthma (childhood), Kidney Stones, Chronic Kidney Disease - [facility] Procedures APPLICATION OF SPLINT (09/15/14) DPT ADMINISTRATION (08/21/14) Family History: States: Unknown Family Hx - Social History Hx Tobacco Use: Yes (light) Hx Alcohol Use: No Hx Substance Use: Yes (MARIJUANA) - Immunization History Hx Tetanus Toxoid Vaccination: Yes Hx Influenza Vaccination: Yes Hx Pneumococcal Vaccination: No Review Of Systems Constitutional: Negative for: Fever, Chills Gastrointestinal: Positive for: Nausea, Vomiting Genitourinary: Negative for: Dysuria, Frequency, Hematuria Musculoskeletal: Positive for: Other (left flank pain radiating to left groin ) Physical Exam - Physical Exam Appears: Non-toxic, No Acute Distress Skin: Normal Color, Warm, Dry Head: Atraumatic, Normacephalic Eye(s): bilateral: Normal Inspection Oral Mucosa: Moist Neck: Supple Chest: Symmetrical, No Deformity, No Tenderness Cardiovascular: Rhythm Regular, No Murmur Respiratory: Normal Breath Sounds, No Rales, No Rhonchi, No Wheezing Gastrointestinal/Abdominal: Soft, No Tenderness, No Guarding, No Rebound Back: Other (left flank tenderness ) Extremity: Normal ROM, Capillary Refill (less than 2 seconds ) Neurological/Psych: Oriented x3, Normal Speech ED Course And Treatment - Laboratory Results Result Diagrams: 08/07/17 10:41 08/07/17 10:41 Lab Interpretation: Normal O2 Sat by Pulse Oximetry: 98 (on RA) Pulse Ox Interpretation: Normal - CT Scan/US Renal US Other Rad Studies (CT/US): Radiology Report Reviewed CT/US Interpretation: (+) 5.4 mm lower pole Left renal calculuc with mild/mod left hydronephrosis. 2.2 non-obstructing Right lower pole renal calculus CT abd/pelvis 07/09/17 Other Rad Studies (CT/US): Radiology Report Reviewed CT/US Interpretation: 4 mm obstructing stone Left mid ureter, mild left hydronephrosis Progress Note: Bloodwork, urinalysis, Renal Ultrasound ordered and reviewed. Toradol IVP and IV Fluids given. Pt was OBS in ED for 2 hours and remained stable. On re-evaluation, pt reports moderate improvement in sx. Pt is afebrile, hemodynamicaly stable. Non-toxic. Tolerate Po well in ED. PulseOx 98 % rA. Neck: SUpple, (-) meningeal sign. ENT: no acute findings. Lungs: CTA B /L, BS equal B/L. CVS: (+)S1S2, reg. Abd: benign, (-) guarding, (-) rebound, ( -) RLQ tenderness. Back: (-) CVA tenderness. Blood work review- no acute abnormalities. UA results review no acute changes. Pt has clinical findings c/ w Left flank, left kidney stones. Pt advised. ref. to F/u with PMD, Urology in 2-3 days for re-eval. return if any worsening or new changes. Disposition Counseled Patient/Family Regarding: Studies Performed, Diagnosis, Need For Followup, Rx Given - Disposition Referrals: J Carlos Keys MD [Staff Provider] - Disposition: HOME/ ROUTINE Disposition Time: 11:52 Condition: STABLE Additional Instructions: Encourage fluids FOLLOW UP WITH UROLOGY IN 1-2 DAYS FOR RE-EVALUATION AND FURTHER TREATMENT NEED RETURN TO ED IF ANY NEW CHANGES. Prescriptions: Tamsulosin [Flomax] 0.4 mg PO DAILY #20 cap traMADol [Ultram] 50 mg PO TID #7 tab Instructions: Kidney Stones (DC) Forms: [employer] (Solomon Islander) - Clinical Impression Clinical Impression: Kidney calculi - PA / POOL LIFEGUARD / Resident Statement MD/DO has reviewed & agrees with the documentation as recorded. - Scribe Statement The provider has reviewed the documentation as recorded by the Scribe (Jessica Cronin) All medical record entries made by the Scribe were at my direction and personally dictated by me. I have reviewed the chart and agree that the record accurately reflects my personal performance of the history, physical exam, medical decision making, and the department course for this patient. I have also personally directed, reviewed, and agree with the discharge instructions and disposition.
[2017-08-07 12:22] VITALS: BP 123/72; PULSE 67; TEMP 98
--- NOTE | 2017-08-07 13:00 | US ---
Renal ultrasound History: Renal colic. Flank pain. Comparison: None available. Technique: Real-time sonography was performed through the kidneys. Findings: Right kidney: 11.2 x 4.5 x 5.5 cm. Normal echogenicity. No hydronephrosis. 2.3 millimeter lower pole nonobstructive calculus. Left Kidney: 11.3 x 6.1 x 6.3 centimeters. Normal echogenicity. Mild to moderate hydronephrosis. 5.4 millimeter lower pole calculus. Visualized aorta grossly preserved. Underdistended urinary bladder limits evaluation. Impression: Mild to moderate left renal hydronephrosis with 5.4 millimeter lower pole left renal calculus. 2.2 millimeter lower pole nonobstructive right renal calculus.
[2017-08-07 16:37] VITALS: O2SAT 98
== END 2017-08-07 12:22 | disposition home or self-care (01) ==
LOC: C.ER 09:54
DX: N20.0 Calculus of kidney (principal); N18.9 Chronic kidney disease, unspecified
CPT/HCPCS: 76770; 80053; 81001; 83690; 85025; 96361; 96374; 99285; J1885; J7030